=== PATIENT | male | born 1985 | race Caucasian/White ===

== ENCOUNTER 2016-04-30 12:17 | Emergency (ER) | payer OTHER ==
[~2016-04-30] VITALS: Ht 167.6 cm; Wt 86.4 kg
[~2016-04-30 12:17] MED LIST: CEPH500C PO; HYDR-902 PO; INSU100C SQ; LANT3I SC; QUET400T PO
[2016-04-30 12:19] VITALS: Ht 167.6 cm; Wt 86.4 kg
[2016-04-30] MEDS ORDERED: ONDANSETRON 4 MG INJ IV STA (12:44)
[2016-04-30] MEDS ORDERED: morphine 4 MG/ML VIAL IV STA (12:44)
--- NOTE | 2016-04-30 12:54 | ERD ---
ER Documentation Chief Complaint Date/Time DATE: 04/30/16 TIME: 12:52 Chief Complaint priapism x 27 hours HPI Patient is a 30-year-old male who reports priapism for the last 12 hours. He states this is the third when he has had. He says he is not taking any medications that have this is a known side effect. This started happening to him just a couple months ago and both times he has been drained by urologist here in the department. He says he does not have any risk factors that he knows of that causes this. He says he tried ice packs and a cold shower nothing helped. He is complaining of severe discomfort at this time. He denies any fever, vomiting, dysuria, hematuria, abdominal pain, flank or back pain. In the remainder of the systems are negative. ROS All systems reviewed and are negative except as per history of present illness. Medications Home Meds Active Scripts Cephalexin* (Cephalexin*) 500 Mg Capsule, 500 MG PO Q6, #28 CAP Prov:CRISPIN WHITE MD 03/17/16 Hydrocodone/Acetaminophen ([place] 10-325 Tablet) 1 Each Tablet, 1 TAB PO Q6H Y for PAIN, #20 TAB Prov:CRISPIN WHITE MD 03/17/16 Reported Medications Quetiapine Fumarate* (Seroquel*) 400 Mg Tablet, 800 MG PO HS, TAB 03/17/16 Insulin Lispro (Humalog) 100 Unit/1 Ml Cartridge, 0 SQ AC MEALS 03/17/16 Insulin Glargine* (Lantus*) 100 Unit/Ml Soln, 45 UNIT SC QHS, #1 VIAL 03/17/16 Allergies Allergies: Coded Allergies: No Known Allergy (Unverified , 03/17/16) PMhx/Soc History of Surgery: No Anesthesia Reaction: No Hx Neurological Disorder: No Hx Respiratory Disorders: No Hx Cardiac Disorders: Yes (htn) Hx Psychiatric Problems: Yes (bipolar) Hx Miscellaneous Medical Probl: Yes (dm) Hx Alcohol Use: No Hx Substance Use: No Hx Tobacco Use: No FmHx Family History: diabetes Physical Exam Vitals Vital Signs Date Time Temp Pulse Resp B/P Pulse Ox O2 Delivery O2 Flow Rate FiO2 04/30/16 12:19 98.9 120 18 132/86 100 Physical Exam Const: [] Well-developed well-nourished male on the bed obviously uncomfortable Head: Atraumatic normocephalic Neck: Full range of motion..~ No meningismus. Resp: Clear to auscultation bilaterally Cardio: Regular rate and rhythm, no murmurs Abd: Soft, non tender, non distended. Normal bowel sounds Skin: No petechiae or rashes Back: No midline or flank tenderness Ext: No cyanosis, or edema Neur: Awake and alert oriented 3 with a GCS of 15 Psych: Normal Mood and AffecT exam reveals a patient with priapism Results 24 hrs Current Medications Medications (Trade) Dose Ordered Sig/Ash Route PRN Reason Start Time Stop Time Status Last Admin Dose Admin Terbutaline Sulfate (Brethine) 0.25 mg ONCE ONCE SC 04/30/16 13:00 04/30/16 13:01 DC 04/30/16 13:12 Morphine Sulfate (morphine) 4 mg ONCE STAT IV 04/30/16 12:44 04/30/16 12:50 DC 04/30/16 13:12 Ondansetron HCl (Zofran Inj) 4 mg ONCE STAT IV 04/30/16 12:44 04/30/16 12:50 DC 04/30/16 13:12 Lidocaine (Xylocaine 2% (Mdv) 20 ml) 20 ml ONCE ONCE INJ 04/30/16 13:30 04/30/16 13:31 DC 04/30/16 13:30 Povidone Iodine 1 applic 1 applic ONCE ONCE TOP 04/30/16 13:30 04/30/16 13:31 DC Phenylephrine HCl/ Sodium Chloride (Kwabena-Synephrine/ NS) 6 ml @ 0 mls/hr ONCE ZFS 04/30/16 13:30 04/30/16 13:31 DC 04/30/16 13:30 Ketamine HCl (Ketalar) 86 mg ONCE ONCE IV 04/30/16 14:00 04/30/16 14:01 DC 04/30/16 14:52 Midazolam HCl 4 mg 4 mg ONCE ONCE IV 04/30/16 14:00 04/30/16 14:01 DC 04/30/16 14:51 Sodium Chloride (NS) 1,000 ml @ 1,000 mls/hr Q1H ONCE IV 04/30/16 14:00 04/30/16 14:59 DC 04/30/16 14:51 Lidocaine/ Epinephrine 30 ml 30 ml STK-MED ONCE .ROUTE 04/30/16 13:47 04/30/16 13:48 DC Cefazolin Sodium (Ancef 1 Gm/50 ml (Pmx)) 50 ml @ 100 mls/hr ONCE IVPB 04/30/16 15:00 04/30/16 15:29 Procedures/MDM Patient with recurrent priapism. I have ordered subcu terbutaline although I suspect this will not be of much benefit. I have also ordered some IV morphine and Zofran for the patient. I have a call out at this time to Dr. Saeed the urologist on-call for further evaluation and treatment. 1305: I spoke with Dr. Saeed. He requested that I drain the priapism myself Dr. Saeed came in and did the drainage of the priapism. He asked me to perform a conscious sedation on the patient. Procedural Sedation: Pre-assessment performed. See preceding complete history and physical for details. Time out performed. See sedation documentation for details. Risk, benefits and alternatives were discussed with the patient. Medication(s): 4 mg of Versed IV, 86 mg of ketamine IV Complications: No hypoxic or apneic events Recovered without incident. A minimum of 30 minutes of face to face time was performed including preparation, sedation and recovery time. 1500: Patient is completely awake alert oriented 3. He has tolerated p.o. without any vomiting. He is stable for discharge home with follow-up with Dr. Saeed as an outpatient. . Departure Diagnosis: Primary Impression: Priapism, unspecified Condition: Stable Patient Instructions: Priapism Referrals: KRANTHI SAEED MD Additional Instructions: Please call and schedule a follow-up appointment with Dr. Aguila as an outpatient. Return to the emergency department for any new or worsening symptoms or recurrent priapism. NUNO FERNANDES Apr 30, 2016 12:54
[2016-04-30] MEDS ORDERED: TERBUTALINE 1 MG/ML INJ SC ONE (13:00)
[2016-04-30] MEDS ORDERED: POVIDONE IODINE 10% 28.4 GM OINT TOP ONE (13:30)
[2016-04-30] MEDS ORDERED: SOD CHLORIDE 0.9% ZFS SCH (13:30)
[2016-04-30] MEDS ORDERED: PHENYLEPHRINE ZFS SCH (13:30)
[2016-04-30] MEDS ORDERED: LIDOCAINE 2% (MDV) 20 ML INJ INJ ONE (13:30)
[2016-04-30] MEDS ORDERED: LIDOCAINE 1%/EPI 30 ML INJ ONE (13:47)
[2016-04-30] MEDS ORDERED: SOD CHLORIDE 0.9% 1,000 ML IV ONE (14:00)
[2016-04-30] MEDS ORDERED: MIDAZOLAM 1 MG/ML 5 ML INJ IV ONE (14:00)
[2016-04-30] MEDS ORDERED: KETAMINE 500 MG INJ IV ONE (14:00)
[2016-04-30] MEDS ORDERED: CEFAZOLIN 1 GM/50 ML (PMX) 50 ML IVPB SCH (15:00)
--- NOTE | 2016-04-30 15:15 | CONS ---
Date/Time of Note Date/Time of Note DATE: 04/30/16 TIME: 15:03 Assessment/Plan Assessment/Plan Chief Complaint/Hosp Course 12 hour priapism procedure report: concious sedation provided by ER . area was preped and draped 8 cc of 2% lido without epi was used for a penile block 3 16 ga angiocath were inserted and about 600 cc of dark blood was aspirated. 3 cc of phenylephrine was injected over the first 15 min it took about 30 minutes to adequately drain the area was dressed in a compressive dressing anceph 1gm Plan d/w nurse discussed w dr erin mason in office to learn about self administration of phenylephrine Problems: Consultation Date/Type/Reason Admit Date/Time Hx of Present Illness 12 hour priapism this is one of numerous episodes. last in february 700cc was aspirated pt has psychiatric disease and is on a variety of psych meds he says he has ED it is not clear if he took any erection medicine Exam/Review of Systems Vital Signs Vitals Vital Signs Date Time Temp Pulse Resp B/P Pulse Ox O2 Delivery O2 Flow Rate FiO2 04/30/16 12:19 98.9 120 18 132/86 100 Exam Constitutional: alert, oriented Psych: anxiety, other (not makeing complete sense) Respiratory: respirations Gastrointestinal: non-tender, soft Genitourinary - Male: other (tense priapism, sparing glans, no sign of trauma) Skin: nl turgor Medications Medications Current Medications Ketamine HCl (Ketalar) 86 mg ONCE ONCE IV ; Start 04/30/16 at 14:00; Stop at 14:01 Midazolam HCl 4 mg 4 mg ONCE ONCE IV ; Start 04/30/16 at 14:00; Stop 04/30/16 at 14:01 Sodium Chloride (NS) 1,000 ml @ 1,000 mls/hr Q1H ONCE IV ; Start 04/30/16 at 14: 00; Stop 04/30/16 at 14:59 KRANTHI SAEED MD Apr 30, 2016 15:15
[2016-04-30] MEDS ORDERED: ONDA4TAB8 PO (15:52)
[2016-04-30] MEDS ORDERED: HYDR-906 PO (15:52)
[2016-04-30 16:45] VITALS: BP 138/66; PULSE 77; RESP 18; TEMP 98
== END 2016-04-30 16:47 | disposition home or self-care (01) ==
LOC: E/R 12:17 → FTE 16:47
DX: N48.30 Priapism, unspecified (principal); I10 Essential (primary) hypertension; E11.9 Type 2 diabetes mellitus without complications; Z79.4 Long term (current) use of insulin
CPT/HCPCS: 96372; 96374; 96375; J0690; J2250; J2270; J2370; J2405; J3105; J7030; Z7502; Z7610

== ENCOUNTER 2016-05-12 21:05 | Emergency (ER) | payer OTHER ==
[~2016-05-12] VITALS: Wt 90.9 kg
[~2016-05-12 21:05] MED LIST changes: +HYDR-906 PO; +ONDA4TAB8 PO
[2016-05-12] MEDS ORDERED: morphine 10 MG INJ IM ONE (22:00)
[2016-05-12] MEDS ORDERED: HYDROmorphONE 1 MG/ML SYG IM STA (22:19)
[2016-05-12] MEDS ORDERED: PHENYLephrine (100 MCG/ML) 5ML SYG ZFS PRN ×2 (22:30)
[2016-05-12] MEDS ORDERED: HYDROmorphONE 2 MG/ML SYG IM STA (22:44)
[2016-05-12] MEDS ORDERED: LORAZEPAM 2 MG INJ IM ONE (23:00)
[2016-05-12] MEDS ORDERED: HYDR-906 PO (23:37)
[2016-05-13 00:04] VITALS: BP 123/110; PULSE 100; RESP 18; TEMP 98.3
--- NOTE | 2016-05-13 00:15 | ERD ---
ER Documentation Chief Complaint Date/Time DATE: 05/13/16 TIME: 00:05 Chief Complaint PRIAPISM FOR THE PAST 12 HOURS. NO RELEIF. MODERATE GENITAL PAIN HPI This 30-year-old male presented 12 hours after he started to have priapism. States that this is happening to him several times already. He did not take any erectile stimulant medications or any other drugs. States these are still in the emergency room and they recommended he follows up urologist. States he does not follow up with urologist because "what does a urologist know that the Internet doesn't know ". His severe pain in the shaft of his penis. No testicular pain. No abdominal pain. ROS All systems reviewed and are negative except as per history of present illness. Medications Home Meds Active Scripts Hydrocodone/Acetaminophen ([place] 5-325 Tablet) 1 Each Tablet, 1 EACH PO Q6, #20 TAB Prov:AZUL OGLESBY DO 05/12/16 Reported Medications Quetiapine Fumarate* (Seroquel*) 400 Mg Tablet, 800 MG PO HS, TAB 03/17/16 Insulin Lispro (Humalog) 100 Unit/1 Ml Cartridge, 0 SQ AC MEALS 03/17/16 Insulin Glargine* (Lantus*) 100 Unit/Ml Soln, 45 UNIT SC QHS, #1 VIAL 03/17/16 Discontinued Scripts Ondansetron Hcl* (Zofran*) 4 Mg Tablet, 4 MG PO Q6H for NAUSEA AND/OR VOMITING, #20 TAB 0 Refills Prov:NUNO FERNANDES 04/30/16 Hydrocodone/Acetaminophen ([place] 5-325 Tablet) 1 Each Tablet, 2 TAB PO Q6H Y for PAIN, #20 TAB Prov:NUNO FERNANDES 04/30/16 Cephalexin* (Cephalexin*) 500 Mg Capsule, 500 MG PO Q6, #28 CAP Prov:CRISPIN WHITE MD 03/17/16 Hydrocodone/Acetaminophen ([place] 10-325 Tablet) 1 Each Tablet, 1 TAB PO Q6H Y for PAIN, #20 TAB Prov:CRISPIN WHITE MD 03/17/16 Allergies Allergies: Coded Allergies: No Known Allergy (Unverified , 03/17/16) PMhx/Soc History of Surgery: No Anesthesia Reaction: No Hx Neurological Disorder: No Hx Respiratory Disorders: No Hx Cardiac Disorders: Yes (htn) Hx Psychiatric Problems: Yes (bipolar) Hx Miscellaneous Medical Probl: Yes (dm, prolonged erections ) Hx Alcohol Use: No Hx Substance Use: Yes (marijuana, cocaine) Hx Tobacco Use: No Smoking Status: Light tobacco smoker Physical Exam Vitals Vital Signs Date Time Temp Pulse Resp B/P Pulse Ox O2 Delivery O2 Flow Rate FiO2 05/12/16 21:07 97.8 88 20 145/88 98 Physical Exam Const: [] Mild distress Head: Atraumatic Eyes: Normal Conjunctiva ENT: Normal External Ears, Nose and Mouth. Neck: Full range of motion..~ No meningismus. Abd: Soft, non tender, non distended. Normal bowel sounds. No testicular tenderness. Penile shaft is firm, tender. Patient has various bulges the shaft his penis with mild scarring from prior priapism treatment. Skin: No petechiae or rashes Neur: Awake and alert and oriented 3, no focal deficits Psych: Normal Mood and Affect Results 24 hrs Current Medications Medications (Trade) Dose Ordered Sig/Ash Route PRN Reason Start Time Stop Time Status Last Admin Dose Admin Morphine Sulfate (morphine) 6 mg ONCE ONCE IM 05/12/16 22:00 05/12/16 22:01 DC 05/12/16 21:52 Miscellaneous Information (* Miscellaneous Pharmacy Order) phenylephrine 100-500mcg inject... ONCE XX 05/12/16 22:00 Phenylephrine HCl (Kwabena-Synephrine Inj Syg) 100-500 MCG PRN PRN ZFS FOR PRIAPISM 05/12/16 22:30 05/12/16 22:30 DC Phenylephrine HCl (Kwabena-Synephrine Inj Syg) 100-500 MCG PRN PRN ZFS FOR PRIAPISM 05/12/16 22:30 Hydromorphone HCl (Dilaudid) 1 mg ONCE STAT IM 05/12/16 22:19 05/12/16 22:20 DC 05/12/16 22:24 Lorazepam (Ativan) 4 mg ONCE ONCE IM 05/12/16 23:00 05/12/16 23:01 DC 05/12/16 22:38 Hydromorphone HCl (Dilaudid) 2 mg ONCE STAT IM 05/12/16 22:44 05/12/16 22:45 DC 05/12/16 22:48 Procedures/MDM Likely recurrent ischemic priapism. Patient was initially given 6 mg of morphine IM. Said this did not help pain at all. I gave him 1 of Dilaudid. I also Mr. 4 of Ativan as he was very jumpy during phenylephrine injections. They gave him another 2 of Dilaudid. Procedure was performed and was successful. I stressed the importance the patient's urologist and stated that his erectile function will be completely destroyed if he does not. He was still resistant to this idea. He requested that I give him 40 [place]. I gave him 20 [place] to go home with his prescription. I also stressed and writing and verbally that he needs to see a urologist to save any function he has left. Patient states that he can no longer get an erection when he wants to be occasionally gets the priapism. Patient has primary care doctor recommended he is follow-up with her urologist as soon as simply possible. Priapism treatment note: Area was cleaned with alcohol wipe. Phenylephrine prepared by pharmacy for priapism. 1 mL was injected to the base of each side of the penis of the 10 and 2 positions. 3-5 minutes later another injection was performed. This is not results and relief of priapism. Aspiration was then performed of 20 mL of blood at the 10 and 2 o'clock position using a 19-gauge needle proximally 4 cm from the base of the penis on each side. This resulted in gradual in the priapism completely. Patient was very fidgety during the procedure but tolerated it well there were no complications. Hemostasis was achieved. Departure Diagnosis: Primary Impression: Priapism Condition: Stable Patient Instructions: Priapism Additional Instructions: Call your primary care doctor TOMORROW for an appointment during the next 2-3 days. GET A REFERRAL TO SEE A UROLOGIST A.S.A.P. See the doctor sooner or return here if your condition worsens before your appointment time. AZUL OGLESBY DO May 13, 2016 00:15
== END 2016-05-13 00:24 | disposition home or self-care (01) ==
LOC: E/R 21:05
DX: N48.30 Priapism, unspecified (principal); F17.210 Nicotine dependence, cigarettes, uncomplicated; E11.9 Type 2 diabetes mellitus without complications; I10 Essential (primary) hypertension; Z79.4 Long term (current) use of insulin
CPT/HCPCS: 96372; J1170; J2060; J2270; Z7502

== ENCOUNTER 2016-08-15 09:30 | Emergency (ER) | payer OTHER ==
[~2016-08-15] VITALS: Ht 162.6 cm; Wt 85.5 kg
[~2016-08-15 09:30] MED LIST changes: -CEPH500C PO; -HYDR-902 PO; -ONDA4TAB8 PO
[2016-08-15 09:39] VITALS: Ht 162.6 cm; Wt 85.5 kg
[2016-08-15] MEDS ORDERED: QUET400T PO (10:28)
--- NOTE | 2016-08-15 10:42 | ERD ---
ER Documentation Chief Complaint Date/Time DATE: 08/15/16 TIME: 10:39 Chief Complaint NEEDS PSYCH MED REFILL, SEROQUIL 1000MG QHS HPI This is a 31-year-old male with a history of schizophrenia and psych disorder presenting to the emergency department asking for a refill on his Seroquel, patient states that he takes 1000 mg every night. Patient denies any homicidal ideation, suicidal ideation. He admits to having racing thoughts but denies any visual or auditory hallucinations. Patient states that he is sick following up with his psychiatrist on and they have discussed with him that he may not get his medications filled until he is in the system. Patient denies any chest pain or shortness of breath. ROS All systems reviewed and are negative except as per history of present illness. Medications Home Meds Active Scripts Quetiapine Fumarate* (Seroquel*) 400 Mg Tablet, 400 MG PO HS, #30 TAB Prov:JOSÉ MIGUEL BUENO PA-C 08/15/16 Hydrocodone/Acetaminophen ([place] 5-325 Tablet) 1 Each Tablet, 1 EACH PO Q6, #20 TAB Prov:AZUL OGLESBY DO 05/12/16 Reported Medications Quetiapine Fumarate* (Seroquel*) 400 Mg Tablet, 800 MG PO HS, TAB 03/17/16 Insulin Lispro (Humalog) 100 Unit/1 Ml Cartridge, 0 SQ AC MEALS 03/17/16 Insulin Glargine* (Lantus*) 100 Unit/Ml Soln, 45 UNIT SC QHS, #1 VIAL 03/17/16 Allergies Allergies: Coded Allergies: No Known Allergy (Unverified , 03/17/16) PMhx/Soc Medical and Surgical Hx: pt denies Medical Hx, pt denies Surgical Hx History of Surgery: No Anesthesia Reaction: No Hx Neurological Disorder: No Hx Respiratory Disorders: No Hx Cardiac Disorders: Yes (htn) Hx Psychiatric Problems: Yes (bipolar) Hx Miscellaneous Medical Probl: Yes (dm, prolonged erections ) Hx Alcohol Use: No Hx Substance Use: Yes (marijuana, cocaine) Hx Tobacco Use: No Smoking Status: Unknown if ever smoked Physical Exam Vitals Vital Signs Date Time Temp Pulse Resp B/P Pulse Ox O2 Delivery O2 Flow Rate FiO2 08/15/16 09:39 98.7 91 18 170/96 98 Physical Exam GENERAL: WD/WN, in no apparent distress, non-toxic appearing HENT: NC/AT EYES: Conjunctiva normal NECK: Supple. No meningeal signs PULM: Clear to auscultation bilaterally. Normal labored breathing CV: Regular rate and rhythm, no murmurs GI: Soft, non tender, non distended. Normal bowel sounds BACK: No masses EXT: No clubbing, cyanosis, or edema. NEURO: Awake and Alert SKIN: No petechiae or rashes PSYCH: Normal mood Procedures/MDM This is a 31-year-old male with a history of schizophrenia and psych disorder presenting to the emergency department asking for a refill on his Seroquel, patient states that he takes 1000 mg every night. Patient states that he is sick following up with his psychiatrist on and they have discussed with him that he may not get his medications filled until he is in the system. There was no evidence of suicidal ideation, or homicidal ideation. No evidence of acute psychosis. I have discussed this with and he suggested to refill seroquel. I discussed the patient to return to the ER for any worsening symptoms. He understands and agrees with this plan. stable for discharge for home Departure Diagnosis: Primary Impression: Encounter for medication refill Additional Impression: Psychological disorder Condition: Stable Patient Instructions: Taking Medicine Safely Additional Instructions: FOLLOW UP WITH YOUR PRIMARY CARE PHYSICIAN TOMORROW.Return to this facility if you are not improving as expected. Take all medicines as directed. You have been given a medicine which may cause drowsiness.DO NOT DRIVE OR OPERATE DANGEROUS MACHINERY while taking this medicine! JOSÉ MIGUEL BUENO PA-C August 15, 2016 10:42
[2016-08-15 10:44] VITALS: TEMP 98.3
== END 2016-08-15 10:44 | disposition home or self-care (01) ==
LOC: FTE 09:30
DX: Z76.0 Encounter for issue of repeat prescription (principal); F99 Mental disorder, not otherwise specified; E11.9 Type 2 diabetes mellitus without complications; I10 Essential (primary) hypertension; Z79.4 Long term (current) use of insulin
CPT/HCPCS: 99281

== ENCOUNTER 2016-09-25 18:32 | Emergency (ER) | payer OTHER ==
[~2016-09-25] VITALS: Ht 177.8 cm; Wt 84.5 kg
[2016-09-25 18:35] VITALS: Ht 177.8 cm; Wt 84.5 kg
[2016-09-25] MEDS ORDERED: QUET400T PO (18:56)
--- NOTE | 2016-09-25 19:02 | ERD ---
ER Documentation Chief Complaint Date/Time DATE: 09/25/16 TIME: 18:59 Chief Complaint medicatiob refill- seroquell HPI 31-year-old male who presents for medication refill. The patient states that he takes 800 mg of Seroquel nightly. He has not been able to follow-up with his prescriber. He denies any suicidal or homicidal thoughts. He has no other complaints. ROS All systems reviewed and are negative except as per history of present illness. Medications Home Meds Active Scripts Quetiapine Fumarate* (Seroquel*) 400 Mg Tablet, 800 MG PO HS for 30 Days, TAB Prov:NATALI MACHUCA MD 09/25/16 Quetiapine Fumarate* (Seroquel*) 400 Mg Tablet, 400 MG PO HS, #30 TAB Prov:JOSÉ MIGUEL BUENO PA-C 08/15/16 Hydrocodone/Acetaminophen ([place] 5-325 Tablet) 1 Each Tablet, 1 EACH PO Q6, #20 TAB Prov:AZUL OGLESBY DO 05/12/16 Reported Medications Quetiapine Fumarate* (Seroquel*) 400 Mg Tablet, 800 MG PO HS, TAB 03/17/16 Insulin Lispro (Humalog) 100 Unit/1 Ml Cartridge, 0 SQ AC MEALS 03/17/16 Insulin Glargine* (Lantus*) 100 Unit/Ml Soln, 45 UNIT SC QHS, #1 VIAL 03/17/16 Allergies Allergies: Coded Allergies: No Known Allergy (Unverified , 03/17/16) PMhx/Soc History of Surgery: No Anesthesia Reaction: No Hx Neurological Disorder: No Hx Respiratory Disorders: No Hx Cardiac Disorders: Yes (htn) Hx Psychiatric Problems: Yes (bipolar) Hx Miscellaneous Medical Probl: Yes (dm, prolonged erections ) Hx Alcohol Use: No Hx Substance Use: Yes (marijuana, cocaine) Hx Tobacco Use: No Smoking Status: Former smoker FmHx Family History: No diabetes Physical Exam Vitals Vital Signs Date Time Temp Pulse Resp B/P Pulse Ox O2 Delivery O2 Flow Rate FiO2 09/25/16 18:35 98.5 88 20 166/70 100 Physical Exam General: Well developed, well nourished, no acute distress Head: Normocephalic, atraumatic. Eyes: EOM intact ENT: Moist mucous membranes Neck: Full ROM Respiratory: No respiratory distress Cardiovascular: Good capillary refil Abdominal: Nondistended : Deferred MSK: No edema, no unilateral swelling, 5/5 strength Neurologic: Alert and oriented, moving all extremities, normal speech, steady gait Skin: No rash Psych: Normal mood Procedures/MDM The patient is asking for medication refill. The patient's dosing of Seroquel was confirmed in the electronic medical record. He was informed that this is on the high end of dosing and he should follow-up with his psychiatrist. I provided referral [facility] as well as the hospital psychiatry referral. The patient was informed to repeat visits to the emergency room for refills of prescriptions are not in his best interest. One-month prescription provided. Seroquel 400 mg 2 tabs nightly prescription provided Departure Diagnosis: Primary Impression: Medication refill Condition: Good Patient Instructions: Taking Medicine Safely Referrals: [facility] YOU HAVE RECEIVED A MEDICAL SCREENING EXAM AND THE RESULTS INDICATE THAT YOU DO NOT HAVE A CONDITION THAT REQUIRES URGENT TREATMENT IN THE EMERGENCY DEPARTMENT. FURTHER EVALUATION AND TREATMENT OF YOUR CONDITION CAN WAIT UNTIL YOU ARE SEEN IN YOUR DOCTORS OFFICE WITHIN THE NEXT 1-2 DAYS. IT IS YOUR RESPONSIBILITY TO MAKE AN APPOINTMENT FOR FOLOW-UP CARE. IF YOU HAVE A PRIMARY DOCTOR --you should call your primary doctor and schedule an appointment IF YOU DO NOT HAVE A PRIMARY DOCTOR YOU CAN CALL OUR PHYSICIAN REFERRAL HOTLINE AT IF YOU CAN NOT AFFORD TO SEE A PHYSICIAN YOU CAN CHOSE FROM THE FOLLOWING [facility] [address] [facility]. [facility] [address] [facility] [facility] [address] [facility] [address] [facility]. [facility] [address] [facility] [address] [facility]. [facility] YOU HAVE RECEIVED A MEDICAL SCREENING EXAM AND THE RESULTS INDICATE THAT YOU DO NOT HAVE A CONDITION THAT REQUIRES URGENT TREATMENT IN THE EMERGENCY DEPARTMENT. FURTHER EVALUATION AND TREATMENT OF YOUR CONDITION CAN WAIT UNTIL YOU ARE SEEN IN YOUR DOCTORS OFFICE WITHIN THE NEXT 1-2 DAYS. IT IS YOUR RESPONSIBILITY TO MAKE AN APPOINTMENT FOR FOLOW-UP CARE. IF YOU HAVE A PRIMARY DOCTOR --you should call your primary doctor and schedule and appointment IF YOU DO NOT HAVE A PRIMARY DOCTOR YOU CAN CALL OUR PHYSICIAN REFERRAL HOTLINE AT . IF YOU CAN NOT AFFORD TO SEE A PHYSICIAN YOU CAN CHOSE FROM THE FOLLOWING [facility] INSTITUTIONS: [facility] [address] [place] [address] [facility] [address] [place] [address] [facility] [address] [place] [address] [facility] Psychiatry Additional Instructions: Call your primary care doctor TOMORROW for an appointment during the next 1 WEEK.Tell the service secretary that you were referred from this facility.See the doctor sooner or return here if your condition worsens before your appointment time. NATALI MACHUCA MD Sep 25, 2016 19:02
== END 2016-09-25 19:00 | disposition home or self-care (01) ==
LOC: FTE 18:32
DX: Z76.0 Encounter for issue of repeat prescription (principal); I10 Essential (primary) hypertension; E11.9 Type 2 diabetes mellitus without complications; Z79.4 Long term (current) use of insulin; Z87.891 Personal history of nicotine dependence
CPT/HCPCS: 99281

== ENCOUNTER 2016-10-22 01:38 | Emergency (ER) | payer OTHER ==
[~2016-10-22] VITALS: Ht 177.8 cm; Wt 80.0 kg
[2016-10-22 01:45] VITALS: Ht 177.8 cm; Wt 80.0 kg
--- NOTE | 2016-10-22 01:55 | ERA ---
ER Documentation Chief Complaint Date/Time DATE: 10/22/16 TIME: 01:54 Chief Complaint Harden penis HPI The patient is a 31-year-old male, presenting to the ER because of recurrent priapism for the last 6 hours. This is the eighth time that it happened. He is taking Seroquel and using marijuana. He has not followed up with a urologist after he had priapism in September 2016 that required a urologist intervention. He denies any fever, chills, neck pain, chest pain, dyspnea, abdominal pain, vomiting, dysuria, diarrhea. He is smokes and does marijuana, denies drinking Past medical history: Diabetes mellitus, hypertension, bipolar, history of priapism Past medical history: None ROS All systems reviewed and are negative except as per history of present illness. Medications Home Meds Active Scripts Quetiapine Fumarate* (Seroquel*) 400 Mg Tablet, 800 MG PO HS for 30 Days, TAB Prov:NATALI MACHUCA MD 09/25/16 Quetiapine Fumarate* (Seroquel*) 400 Mg Tablet, 400 MG PO HS, #30 TAB Prov:JOSÉ MIGUEL BUENO PA-C 08/15/16 Hydrocodone/Acetaminophen ([place] 5-325 Tablet) 1 Each Tablet, 1 EACH PO Q6, #20 TAB Prov:AZUL OGLESBY DO 05/12/16 Reported Medications Quetiapine Fumarate* (Seroquel*) 400 Mg Tablet, 800 MG PO HS, TAB 03/17/16 Insulin Lispro (Humalog) 100 Unit/1 Ml Cartridge, 0 SQ AC MEALS 03/17/16 Insulin Glargine* (Lantus*) 100 Unit/Ml Soln, 45 UNIT SC QHS, #1 VIAL 03/17/16 Allergies Allergies: Coded Allergies: No Known Allergy (Unverified , 03/17/16) PMhx/Soc History of Surgery: No Anesthesia Reaction: No Hx Neurological Disorder: No Hx Respiratory Disorders: No Hx Cardiac Disorders: Yes (htn) Hx Psychiatric Problems: Yes (bipolar) Hx Miscellaneous Medical Probl: Yes (dm, prolonged erections ) Hx Alcohol Use: No Hx Substance Use: Yes (marijuana, cocaine) Hx Tobacco Use: No Physical Exam Vitals Vital Signs Date Time Temp Pulse Resp B/P Pulse Ox O2 Delivery O2 Flow Rate FiO2 730/17 04:22 98.1 68 20 138/71 99 10/22/16 01:45 98.1 98 20 145/75 99 Physical Exam Const: No acute distress. Head: Atraumatic. Eyes: Normal Conjunctiva. ENT: Normal External Ears, Nose and Mouth. Neck: Full range of motion. No meningismus. Resp: Clear to auscultation bilaterally. Cardio: Regular rate and rhythm. Abd: Soft, non distended, normal bowel sounds, non tender. Skin: No petechiae or rashes. Back: No midline or flank tenderness. Ext: No cyanosis, or edema. Neur: Awake and alert. No focal deficit Psych: Normal Mood and Affect. : Harden penis Result Diagram: 10/22/16 0346 10/22/16 0346 Results 24 hrs Laboratory Tests Test 10/22/16 02:26 10/22/16 03:46 Bedside Glucose 310mg/dL White Blood Count 9.210^3/ul Red Blood Count 6.0910^6/ul Hemoglobin 12.7g/dl Hematocrit 41.7% Mean Corpuscular Volume 68.5fl Mean Corpuscular Hemoglobin 20.9pg Mean Corpuscular Hemoglobin Concent 30.5g/dl Red Cell Distribution Width 19.9% Platelet Count 24925^3/UL Mean Platelet Volume fl Neutrophils % 56.7% Lymphocytes % 36.8% Monocytes % 5.9% Eosinophils % 0.0% Basophils % 0.1% Nucleated Red Blood Cells % 0.0/100WBC Neutrophils # 5.210^3/ul Lymphocytes # 3.410^3/ul Monocytes # 0.510^3/ul Eosinophils # 0.010^3/ul Basophils # 0.010^3/ul Nucleated Red Blood Cells # 0.010^3/ul Sodium Level 138mmol/L Potassium Level 5.0mmol/L Chloride Level 99mmol/L Carbon Dioxide Level 23mmol/L Anion Gap 21 Blood Urea Nitrogen 12mg/dl Creatinine 0.81mg/dl Glucose Level 351mg/dl Calcium Level 8.9mg/dl Current Medications Medications (Trade) Dose Ordered Sig/Ash Route PRN Reason Start Time Stop Time Status Last Admin Dose Admin Hydromorphone HCl (Dilaudid) 1 mg ONCE STAT IV 10/22/16 02:07 10/22/16 02:08 DC 10/22/16 02:14 Lidocaine (Xylocaine 2% (Mdv) 20 ml) 20 ml ONCE ONCE INJ 10/22/16 02:30 10/22/16 02:31 DC 10/22/16 02:30 Non-Formulary Medication 1 ea ONCE PRN INJ FOR Priapism (ischemic) 10/22/16 03:00 10/22/16 06:00 Hydromorphone HCl 1 mg 1 mg ONCE STAT IV 10/22/16 03:10 10/22/16 03:11 DC 10/22/16 03:47 Cefazolin Sodium 50 ml @ 100 mls/hr ONCE IVPB 10/22/16 04:00 10/22/16 04:29 DC 10/22/16 04:01 Cefazolin Sodium 50 ml @ 100 mls/hr ONCE IVPB 10/22/16 04:30 10/22/16 04:59 Sodium Chloride (NS) 1,000 ml @ 1,000 mls/hr Q1H ONCE IV 10/22/16 04:30 10/22/16 05:29 Insulin Human Lispro (Humalog) 8 unit ONCE STAT SC 10/22/16 04:30 10/22/16 04:31 Procedures/MDM MEDICAL MAKING DECISION: The patient is a 31-year-old male, presenting with recurrent priapism, acute diabetic hyperglycemia. He was treated with Dilaudid 1 mg IV 2 for pain, 1 L normal saline and Humalog 8 units subcutaneously for acute diabetic hyperglycemia with good response. he was also treated empirically with Ancef 1 g IV because of the Urologist aspiration of the penis by urologist Consultation: I discussed the patient with the on-call urologist Dr. Stevenson who kindly came to the ER to assist the patient. Please see his note for detailed information of the procedure Departure Diagnosis: Primary Impression: Priapism Additional Impressions: Diabetes mellitus with hyperglycemia Anemia Condition: Good Comments He was discharged with Motrin I discussed the findings with the patient. I advised the patient to follow-up with the primary physician and Dr. Stevenson in about 1-2 days for further evaluation, sooner if needed and return if any concern. JOHNSON JONES MD Oct 22, 2016 01:55
[2016-10-22] MEDS ORDERED: HYDROmorphONE 1 MG/ML SYG IV STA ×2 (02:07→03:10)
[2016-10-22] MEDS ORDERED: LIDOCAINE 2% (MDV) 20 ML INJ INJ ONE (02:30)
[2016-10-22] MEDS ORDERED: PHENYLEPHRINE 100 MCG/ML INJ PRN (03:00)
[2016-10-22] MEDS ORDERED: CEFAZOLIN 1 GM/50 ML (PMX) 50 ML IVPB SCH ×2 (04:00→04:30)
[2016-10-22 04:13] LABS: ABNORMAL IP MESSAGE 1; BASOPHILS % 0.1 % (0.0-2.0); CALCIUM 8.9 mg/dl (8.4-10.2); CREATININE 0.81 mg/dl (0.61-1.24); HEMATOCRIT 41.7 % (42.0-52.0); HEMOGLOBIN 12.7 g/dl (14.0-18.0); LYMPHOCYTES # 3.4 10^3/ul (0.8-2.9); LYMPHOCYTES % 36.8 % (15.0-51.0); MEAN CORPUSCULAR HEMOGLOBIN 20.9 pg (29.0-33.0); MEAN CORPUSCULAR HGB CONC 30.5 g/dl (32.0-37.0); MEAN CORPUSCULAR VOLUME 68.5 fl (82.0-101.0); MONOCYTE # 0.5 10^3/ul (0.3-0.9); MONOCYTES % 5.9 % (0.0-11.0); NEUTROPHIL # 5.2 10^3/ul (1.6-7.5); NEUTROPHILS % 56.7 % (39.0-77.0); PLATELET COUNT 266 10^3/UL (140-415); POSITIVE DIFF @See below; RED BLOOD COUNT 6.09 10^6/ul (4.70-6.10); RED CELL DISTRIBUTION WIDTH 19.9 % (11.5-14.5); WHITE BLOOD COUNT 9.2 10^3/ul (4.8-10.8)
[2016-10-22 04:22] VITALS: TEMP 98.1
[2016-10-22] MEDS ORDERED: SOD CHLORIDE 0.9% 1,000 ML IV ONE (04:30)
[2016-10-22] MEDS ORDERED: INSULIN LISPRO 100 UNIT/ML VIAL SC STA (04:30)
[2016-10-22] MEDS ORDERED: IBUP-1542 PO (04:45)
[2016-10-22 05:22] VITALS: BP 115/70; PULSE 71; RESP 15
--- NOTE | 2016-10-23 13:36 | CONS ---
DATE OF ADMISSION: 10/22/2016 DATE OF CONSULTATION: 10/22/2016 REASON FOR CONSULTATION: Priapism. HISTORY OF PRESENT ILLNESS: This is a 31-year-old male who comes in with at least his third episode of priapism that our group has taken care of. The priapism seems to always be preceded by a night of taking Seroquel and smoking marijuana. He denies any other injection or other medication. He has been seen twice before by our group and has had the priapism treated. The last time he was seen we asked him to come to the office to learn self- administration of phenylephrine so we can avoid these emergencies, but he never showed up. I am called urgently at 3 a.m. to treat this patient who is having significant pain due to 6 hour priapism. PHYSICAL EXAMINATION: GENERAL APPEARANCE: He is alert, awake, lying in bed. GENITOURINARY: There is an obvious firm penis. The patient is having significant discomfort. PROCEDURE: Using sedation with Dilaudid, the penis was prepped and draped and a penile block was performed with 5 mL of 2 percent lidocaine. At this point the right and left corpora were then punctured initially with a 21 butterfly which did not obtain any blood, and then a 16 needle was able to drain a large amount of dark blood. I then injected 1 mL of phenylephrine which was diluted by the pharmacy. We did this about 3 times, and was able to completely detumesce the penis nicely. His pain completely resolved. At this point a dressing was placed using 4 x 4 and Coban, and 1 gram of Ancef was given intravenously. The patient will go home to be followed in the office. Dictated By: Partha Stevenson MD /joleen/roberta /Document#: [id number]
== END 2016-10-22 05:25 | disposition left against medical advice (07) ==
LOC: E/R 01:38
DX: N48.30 Priapism, unspecified (principal); E11.65 Type 2 diabetes mellitus with hyperglycemia; D64.9 Anemia, unspecified; I10 Essential (primary) hypertension; Z79.4 Long term (current) use of insulin
CPT/HCPCS: 80048; 82962; 85025; 96372; 96374; 96375; 96376; J0690; J1170; J1815; J7030; Z7502; Z7610

== ENCOUNTER 2017-06-13 23:26 | Emergency (ER) | END 2017-06-14 03:35 | disposition home or self-care (01) ==

== ENCOUNTER 2017-08-05 12:58 | Emergency (ER) | END 2017-08-05 13:40 | disposition home or self-care (01) ==

== ENCOUNTER 2018-06-26 22:23 | Emergency (ER) | payer SELFPAY ==
[~2018-06-26] VITALS: Ht 172.7 cm; Wt 80.7 kg
[~2018-06-26 22:23] MED LIST changes: +HYDR-4011 PO; -HYDR-906 PO; +IBUP-1542 PO; +NAPR-688 PO
[2018-06-26 22:29] VITALS: BP 147/81; PULSE 106; RESP 17; Ht 172.7 cm; Wt 80.7 kg
[2018-06-27] MEDS ORDERED: IBUP-1542 PO (17:19)
[2018-06-27] MEDS ORDERED: HYDR-4011 PO (17:19)
== END 2018-06-27 03:00 | disposition left against medical advice (07) ==
LOC: FTE 22:23
DX: Z53.21 Procedure and treatment not carried out due to patient leaving prior to being seen by health care provider (principal)

== ENCOUNTER 2018-06-27 12:48 | Emergency (ER) | payer OTHER ==
[~2018-06-27] VITALS: Ht 175.3 cm; Wt 79.7 kg
[2018-06-27 13:20] VITALS: Ht 175.3 cm; Wt 79.7 kg
[2018-06-27] MEDS ORDERED: KETOROLAC 60 MG INJ IM STA (17:12)
[2018-06-27] MEDS ORDERED: HYDR-4011 PO (17:19)
[2018-06-27] MEDS ORDERED: IBUP-1542 PO (17:19)
--- NOTE | 2018-06-27 17:26 | ERD ---
ER Documentation Chief Complaint Chief Complaint L shoulder pain and hand numbness X 4 days, recent hand puncture wound HPI 32-year-old male presents with complaint of left shoulder pain and arm weakness for the past 4 days. States that it happened when he slept on it the wrong way. Says that he is unable to lift his left hand above his shoulder. States there is also some associated numbness and tingling. Denies any chest pain, shortness of breath, neck pain, headaches. Has diabetes. Denies allergies. ROS All systems reviewed and are negative except as per history of present illness. Medications Home Meds Active Scripts Hydrocodone/Acetaminophen ([place] 5-325 Tablet) 1 Each Tablet, 1 TAB PO Q6H PRN for PAIN, #10 TAB Prov:WHITNEY CARTER 06/27/18 Ibuprofen* (Motrin*) 600 Mg Tab, 600 MG PO Q6 for pain, #30 TAB Prov:WHITNEY CARTER 06/27/18 Naproxen* (Naproxen*) 500 Mg Tablet, 500 MG PO BID PRN for PAIN, #20 TAB Prov:AZUL OGLESBY DO 06/14/17 Hydrocodone/Acetaminophen ([place] 5-325 Tablet) 1 Each Tablet, 1 EACH PO Q6, #12 TAB Prov:AZUL OGLESBY DO 06/14/17 Ibuprofen* (Motrin*) 600 Mg Tab, 600 MG PO Q6, #30 TAB Prov:JOHNSON JONES MD 10/22/16 Quetiapine Fumarate* (Seroquel*) 400 Mg Tablet, 800 MG PO HS for 30 Days, TAB Prov:NATALI MACHUCA MD 09/25/16 Quetiapine Fumarate* (Seroquel*) 400 Mg Tablet, 400 MG PO HS, #30 TAB Prov:JOSÉ MIGUEL BUENO PA-C 08/15/16 Hydrocodone/Acetaminophen ([place] 5-325 Tablet) 1 Each Tablet, 1 EACH PO Q6, #20 TAB Prov:AZUL OGLESBY DO 05/12/16 Reported Medications Quetiapine Fumarate* (Seroquel*) 400 Mg Tablet, 800 MG PO HS, TAB 03/17/16 Insulin Lispro (Humalog) 100 Unit/1 Ml Cartridge, 0 SQ AC MEALS 03/17/16 Insulin Glargine* (Lantus*) 100 Unit/Ml Soln, 45 UNIT SC QHS, #1 VIAL 03/17/16 Allergies Allergies: Coded Allergies: No Known Allergy (Unverified , 03/17/16) PMhx/Soc History of Surgery: No Anesthesia Reaction: No Hx Neurological Disorder: No Hx Respiratory Disorders: No Hx Cardiac Disorders: No Hx Psychiatric Problems: No Hx Miscellaneous Medical Probl: Yes (priapriasm, DM) Hx Alcohol Use: No Hx Substance Use: No Hx Tobacco Use: No Smoking Status: Never smoker Physical Exam Vitals Vital Signs Date Temp Pulse Resp B/P (MAP) Pulse Ox O2 O2 Flow FiO2 Time Delivery Rate 06/27/18 98.4 102 20 160/89 98 13:20 (112) Physical Exam Const: No acute distress Head: Atraumatic Eyes: Normal Conjunctiva ENT: Normal External Ears, Nose and Mouth. Neck: Full range of motion. No meningismus. Resp: Clear to auscultation bilaterally Cardio: Regular rate and rhythm, no murmurs Abd: Soft, non tender, non distended. Normal bowel sounds Skin: No petechiae or rashes Back: No midline or flank tenderness Left shoulder: Diminished strength noted in the left hand. Distal pulses and sensation is intact. Patient has limited range of motion in the left shoulder. There is no edema, erythema, ecchymosis, or kaylan deformity noted. Overlying skin is intact. Compartments are soft and warm. There is no pallor or cyanosis. Range of motion, distal pulses, and distal sensation is intact. There is normal cap refill. Neur: Awake and alert Psych: Normal Mood and Affect Results 24 hrs Current Medications Medications Dose Sig/Ash Start Time Status Last (Trade) Ordered Route PRN Stop Time Admin Dose Reason Admin Ketorolac 60 mg ONCE STAT 06/27/18 DC Tromethamine IM 17:12 06/27/18 (Toradol) 17:15 1 tab ONCE ONCE 06/27/18 Acetaminophen PO 17:30 06/27/18 / 17:31 Hydrocodone Bitart ([place] ()) Procedures/MDM Patient's presentation is consistent with possible neurologic palsy. Patient was advised to follow-up with Dr. Velasquez within 24 hours. I have low suspicion for neurovascular compromise, compartment syndrome, fracture, osteomyelitis, septic joint, or other emergent condition. Patient discharged with strict ER precautions. Patient advised to follow up with PMD. All questions answered at discharge. Departure Diagnosis: Primary Impression: Shoulder pain Chronicity: acute Laterality: left Qualified Codes: M25.512 - Pain in left shoulder Condition: Stable Patient Instructions: Shoulder Problems Referrals: [facility] YOU HAVE RECEIVED A MEDICAL SCREENING EXAM AND THE RESULTS INDICATE THAT YOU DO NOT HAVE A CONDITION THAT REQUIRES URGENT TREATMENT IN THE EMERGENCY DEPARTMENT. FURTHER EVALUATION AND TREATMENT OF YOUR CONDITION CAN WAIT UNTIL YOU ARE SEEN IN YOUR DOCTORS OFFICE WITHIN THE NEXT 1-2 DAYS. IT IS YOUR RESPONSIBILITY TO MAKE AN APPOINTMENT FOR FOLOW-UP CARE. IF YOU HAVE A PRIMARY DOCTOR --you should call your primary doctor and schedule an appointment IF YOU DO NOT HAVE A PRIMARY DOCTOR YOU CAN CALL OUR PHYSICIAN REFERRAL HOTLINE AT IF YOU CAN NOT AFFORD TO SEE A PHYSICIAN YOU CAN CHOSE FROM THE FOLLOWING [facility] [address] [facility]. [facility] [address] [facility] [facility] [address] [facility] [address] [facility] [address] [facility] [address] [facility] [facility]. [address] Additional Instructions: FOLLOW UP WITH YOUR PRIMARY CARE PHYSICIAN TOMORROW.Return to this facility if you are not improving as expected. WHITNEY CARTER Jun 27, 2018 17:26
[2018-06-27] MEDS ORDERED: HYDROCODONE/APAP (10/325) TAB PO ONE (17:30)
[2018-06-27 17:50] VITALS: BP 154/81; PULSE 18; RESP 18
== END 2018-06-27 17:50 | disposition home or self-care (01) ==
LOC: FTE 12:48
DX: M25.512 Pain in left shoulder (principal); E11.9 Type 2 diabetes mellitus without complications; Z79.4 Long term (current) use of insulin
CPT/HCPCS: 96372; J1885; Z7502; Z7610

== ENCOUNTER 2018-06-30 18:26 | Emergency (ER) | payer OTHER ==
[~2018-06-30] VITALS: Ht 172.7 cm; Wt 80.6 kg
[2018-06-30 18:28] VITALS: BP 151/35; PULSE 116; RESP 19; Ht 172.7 cm; Wt 80.6 kg
[2018-06-30] MEDS ORDERED: HYDROCODONE/APAP (10/325) TAB PO ONE (19:00)
[2018-06-30] MEDS ORDERED: DIPHTH/TET/ACEL PERTUSS (ADULT) 0.5 ML VIAL IM* ONE (19:00)
[2018-06-30] MEDS ORDERED: KETOROLAC 60 MG INJ IM STA (20:16)
[2018-06-30] MEDS ORDERED: NAPR-985 PO (20:39)
[2018-06-30] MEDS ORDERED: SULF1TAB31 PO (20:39)
[2018-06-30] MEDS ORDERED: CEPH-443 PO (20:39)
[2018-06-30] MEDS ORDERED: CEPH250S33 PO (20:39)
--- NOTE | 2018-06-30 21:56 | ERD ---
ER Documentation Chief Complaint Chief Complaint LEFT SHOULDER PAIN-PINCHED NERVE "FOR A WHILE"; ABSCESS LEFT HAND HPI 32-year-old male patient with a past medical history of diabetes, chronic left shoulder pain presents the ED stating that his left shoulder still hurts and it feels like he has numbness and tingling in his left hand. Denies any chest pain, wheezing, shortness of breath, abdominal pain, nausea, vomiting, neck stiffness. Denies any recent trauma or injuries to the left shoulder. 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 States that he had some redness develop on his fourth finger and left pinky finger. States that there was pus that was coming out of his right fourth finger. States that he is unsure when his tetanus was up-to-date. Rates his pain a 6 out of 10. Reports that he has not been able to have any pain relief at home. ROS All systems reviewed and are negative except as per history of present illness. Medications Home Meds Active Scripts Cephalexin* (Keflex*) 500 Mg Capsule, 500 MG PO QID for 7 Days, CAP Prov:JACINTO BENOIT PA-C 06/30/18 Sulfamethoxazole/Trimethoprim* (Bactrim Ds* Tablet) 1 Each Tablet, 1 TAB PO BID, #14 TAB Prov:JACINTO BENOIT PA-C 06/30/18 Naproxen* (Naprosyn*) 500 Mg Tablet, 500 MG PO BID PRN for PAIN AND/OR INFLAMMATION, #30 TAB Prov:JACINTO BENOIT PA-C 06/30/18 Hydrocodone/Acetaminophen ([place] 5-325 Tablet) 1 Each Tablet, 1 TAB PO Q6H PRN for PAIN, #10 TAB Prov:WHITNEY CARTER 06/27/18 Ibuprofen* (Motrin*) 600 Mg Tab, 600 MG PO Q6 for pain, #30 TAB Prov:WHITNEY CARTER 06/27/18 Naproxen* (Naproxen*) 500 Mg Tablet, 500 MG PO BID PRN for PAIN, #20 TAB Prov:AZUL OGLESBY DO 06/14/17 Hydrocodone/Acetaminophen ([place] 5-325 Tablet) 1 Each Tablet, 1 EACH PO Q6, #12 TAB Prov:AZUL OGLESBY DO 06/14/17 Ibuprofen* (Motrin*) 600 Mg Tab, 600 MG PO Q6, #30 TAB Prov:JOHNSON JONES MD 10/22/16 Quetiapine Fumarate* (Seroquel*) 400 Mg Tablet, 800 MG PO HS for 30 Days, TAB Prov:NATALI MACHUCA MD 09/25/16 Quetiapine Fumarate* (Seroquel*) 400 Mg Tablet, 400 MG PO HS, #30 TAB Prov:JOSÉ MIUGEL BUENO PA-C 08/15/16 Hydrocodone/Acetaminophen ([place] 5-325 Tablet) 1 Each Tablet, 1 EACH PO Q6, #20 TAB Prov:AZUL OGLESBY DO 05/12/16 Reported Medications Quetiapine Fumarate* (Seroquel*) 400 Mg Tablet, 800 MG PO HS, TAB 03/17/16 Insulin Lispro (Humalog) 100 Unit/1 Ml Cartridge, 0 SQ AC MEALS 03/17/16 Insulin Glargine* (Lantus*) 100 Unit/Ml Soln, 45 UNIT SC QHS, #1 VIAL 03/17/16 Allergies Allergies: Coded Allergies: No Known Allergy (Unverified , 03/17/16) PMhx/Soc History of Surgery: No Anesthesia Reaction: No Hx Neurological Disorder: No Hx Respiratory Disorders: No Hx Cardiac Disorders: No Hx Psychiatric Problems: No Hx Miscellaneous Medical Probl: Yes (dm) Hx Alcohol Use: No Hx Substance Use: Yes (marijuana) Hx Tobacco Use: No Smoking Status: Current some day smoker FmHx Family History: No diabetes Physical Exam Vitals Vital Signs Date Temp Pulse Resp B/P (MAP) Pulse Ox O2 O2 Flow FiO2 Time Delivery Rate 06/30/18 98.2 116 19 151/35 98 18:28 (73) Physical Exam Const: [id number], well-nourished. In no acute distress. Head: Atraumatic, normocephalic Eyes: Normal Conjunctiva without injection ENT: Normal external ear, nose and mouth. Neck: Full range of motion. No meningismus. Resp: Clear to auscultation bilaterally. No wheezing, rhonchi, rales, or crackles. No accessory muscle use. No retractions. Cardio: Regular rate and rhythm, no murmurs Skin: No petechiae or rashes Back: No midline tenderness. No CVA tenderness. Ext: No cyanosis, or edema. Cap refill less than 2 seconds. Distal pulses intact bilaterally. Full range of motion of the left shoulder with flexion, extension internal and external rotation. All other joint spaces have full range of motion. Punctate wounds noted of the left fifth digit and right fourth digit with spontaneous purulent discharge noted of the right fourth finger the volar aspect. Full range of motion of the DIP, PIP, MCP joints bilaterally. Neur: Awake and alert. Normal gait and coordination. Muscle strength 5/5. Sensation intact bilaterally. Psych: Normal Mood and Affect Results 24 hrs Current Medications Medications Dose Sig/Ash Start Time Status Last (Trade) Ordered Route PRN Stop Time Admin Dose Reason Admin 1 tab ONCE ONCE 06/30/18 DC 06/30/18 Acetaminophen PO 19:00 06/30/18 19:11 / 19:02 Hydrocodone Bitart ([place] (10/325)) Diphtheria/ 0.5 ml ONCE ONCE 06/30/18 DC 06/30/18 Tetanus/Acell IM* 19:00 06/30/18 19:11 Pertussis 19:02 (Adacel) Ketorolac 60 mg ONCE STAT 06/30/18 DC 06/30/18 Tromethamine IM 20:16 06/30/18 20:27 (Toradol) 20:17 Procedures/MDM 32-year-old male patient with no significant past medical history presents to ED complaining of left shoulder pain, punctate wounds of his left finger and right fourth finger. Patient is afebrile and nontoxic-appearing. She was given Toradol 60 mg IM and [place] 10-325 mg with improvement of his pain. Tdap Updated. IMPRESSION: Unremarkable left shoulder. Patient is neurovascularly intact. Patient's extremity symptoms have stabilized while they have been evaluated in the department and are appropriate for outpatient follow up. No evidence of fractures, dislocations, compartment syndrome, neurologic injury, vascular injury, open joint, open fracture, tendon laceration, septic arthritis, osteomyelitis, DVT, foreign body, or other emergent conditions. Low suspicion for anaphylaxis, scabies, SJS/TEN, TSS, Lyme's Disease, syphilis, RMSF, shingles, disseminated gonorrhea chlamydia, DIC, TTP, ITP, erythema multiforme, sepsis, cellulitis, necrotizing fasciitis, gangrene, meningococ cemia, allergic contact dermatitis, urticaria, eczema, tinea infection, or other emergent conditions. Diagnosis: Left shoulder pain, Puncture wound of finger Discharge medications: Naproxen Follow up with primary care physician in 1-2 days. Instructed patient to return to the ED sooner for any worsening symptoms. Patient's questions were answered. Patient is hemodynamically stable. Patient understood and agreed with discharge plan. Patient discharged stable. Disclaimer: Inadvertent spelling and grammatical errors are likely due to EHR/dictation software use and do not reflect on the overall quality of patient care. Also, please note that the electronic time recorded on this note does not necessarily reflect the actual time of the patient encounter. Disclaimer: Inadvertent spelling and grammatical errors are likely due to EHR/dictation software use and do not reflect on the overall quality of patient care. Also, please note that the electronic time recorded on this note does not necessarily reflect the actual time of the patient encounter. Departure Diagnosis: Primary Impression: Shoulder pain, left Chronicity: acute Qualified Codes: M25.512 - Pain in left shoulder Additional Impression: Puncture wound of finger Encounter type: initial encounter Qualified Codes: S61.239A - Puncture wound without foreign body of unspecified finger without damage to nail, initial encounter Condition: Stable Patient Instructions: Puncture Wound, General, Tendonitis, Shoulder Pain (Uncertain Cause) Referrals: [facility] YOU HAVE RECEIVED A MEDICAL SCREENING EXAM AND THE RESULTS INDICATE THAT YOU DO NOT HAVE A CONDITION THAT REQUIRES URGENT TREATMENT IN THE EMERGENCY DEPARTMENT. FURTHER EVALUATION AND TREATMENT OF YOUR CONDITION CAN WAIT UNTIL YOU ARE SEEN IN YOUR DOCTORS OFFICE WITHIN THE NEXT 1-2 DAYS. IT IS YOUR RESPONSIBILITY TO MAKE AN APPOINTMENT FOR FOLOW-UP CARE. IF YOU HAVE A PRIMARY DOCTOR --you should call your primary doctor and schedule an appointment IF YOU DO NOT HAVE A PRIMARY DOCTOR YOU CAN CALL OUR PHYSICIAN REFERRAL HOTLINE AT IF YOU CAN NOT AFFORD TO SEE A PHYSICIAN YOU CAN CHOSE FROM THE FOLLOWING [facility] CL[facility]ICS [facility] [address] [facility] [address] [facility] [address] [facility] [address] [facility] [address] [facility]. [facility] [address] [facility] [facility] YOU HAVE RECEIVED A MEDICAL SCREENING EXAM AND THE RESULTS INDICATE THAT YOU DO NOT HAVE A CONDITION THAT REQUIRES URGENT TREATMENT IN THE EMERGENCY DEPARTMENT. FURTHER EVALUATION AND TREATMENT OF YOUR CONDITION CAN WAIT UNTIL YOU ARE SEEN IN YOUR DOCTORS OFFICE WITHIN THE NEXT 1-2 DAYS. IT IS YOUR RESPONSIBILITY TO MAKE AN APPOINTMENT FOR FOLOW-UP CARE. IF YOU HAVE A PRIMARY DOCTOR --you should call your primary doctor and schedule and appointment IF YOU DO NOT HAVE A PRIMARY DOCTOR YOU CAN CALL OUR PHYSICIAN REFERRAL HOTLINE AT . IF YOU CAN NOT AFFORD TO SEE A PHYSICIAN YOU CAN CHOSE FROM THE FOLLOWING [facility] INSTITUTIONS: [facility] [address] [place] [address] [facility] [address] [place], [place] [id number] [place] [address] [address] [place] [address] [facility] 7 a.m.- 11 p.m. Every Day of the Week NO APPOINTMENT OR AUTHORIZATION NEEDED SO [facility] Hours: Mon-Fri 9:00 AM - 5:00 PM [facility] Additional Instructions: Call your primary care doctor TOMORROW for an appointment during the next 2-3 days.See the doctor sooner or return here if your condition worsens before your appointment time. Follow up in 2 days in your clinic for wound check. JACINTO BENOIT PA-C Jun 30, 2018 21:56
== END 2018-06-30 20:44 | disposition home or self-care (01) ==
LOC: FTE 18:26
DX: S49.92XA Unspecified injury of left shoulder and upper arm, initial encounter (principal); E11.9 Type 2 diabetes mellitus without complications; F17.210 Nicotine dependence, cigarettes, uncomplicated; S61.237A Puncture wound without foreign body of left little finger without damage to nail, initial encounter; S61.235A Puncture wound without foreign body of left ring finger without damage to nail, initial encounter; X58.XXXA Exposure to other specified factors, initial encounter; Y92.89 Other specified places as the place of occurrence of the external cause; Z23 Encounter for immunization; Z79.4 Long term (current) use of insulin
CPT/HCPCS: 73030; 90715; J1885; Z7610; 90471; 96372